=== PATIENT | male | born 1950 | race Caucasian/White ===

== ENCOUNTER 2016-08-07 07:33 | Outpatient (CLI) | payer MEDICARE, OTHER | END 2016-08-07 07:34 | disposition home or self-care (01) | DX: N62 Hypertrophy of breast (principal) ==

== ENCOUNTER 2016-08-10 07:52 | Outpatient (CLI) | payer MEDICARE, OTHER ==
[2016-08-10] MEDS ORDERED: GADOBUTROL 7.5 MMOL/7.5 ML VIAL IVP ONE (16:00)
== END 2016-08-10 07:53 | disposition home or self-care (01) ==
DX: N62 Hypertrophy of breast (principal); E29.1 Testicular hypofunction; Z94.1 Heart transplant status; R93.0 Abnormal findings on diagnostic imaging of skull and head, not elsewhere classified; J98.4 Other disorders of lung
CPT/HCPCS: 70553; 71020; A9585

== ENCOUNTER 2017-04-22 10:28 | Outpatient (CLI) | payer MEDICARE, OTHER ==
[2017-04-22 11:10] LABS: CALCIUM 8.9 mg/dL (8.5-10.3); CREATININE 1.5 mg/dL (0.6-1.2); POTASSIUM 4.1 mmol/L (3.5-5.0)
== END 2017-04-22 10:29 | disposition home or self-care (01) ==
LOC: LAB 10:28
PROVIDERS: ATTEND Internal Medicine
DX: N18.3 Chronic kidney disease, stage 3 (moderate) (principal)
CPT/HCPCS: 36415; 80048

== ENCOUNTER 2017-04-26 13:39 | Outpatient (CLI) | payer MEDICARE, OTHER ==
[2017-04-26] MEDS ORDERED: GADOBUTROL 7.5 MMOL/7.5 ML VIAL ONE (13:41)
[2017-04-26] MEDS ORDERED: GADOBUTROL 7.5 MMOL/7.5 ML VIAL IVP ONE (14:40)
--- NOTE | 2017-04-26 16:13 | MRI Report ---
EXAM: MRI BRAIN WITHOUT AND WITH CONTRAST EXAM DATE: 04/26/2017 02:50 p.m. CLINICAL HISTORY: Pituitary microadenoma follow-up. COMPARISON: 08/10/2016. TECHNIQUE: Multiplanar, multisequence T1-weighted and fluid-sensitive MR sequences of the brain were performed. Sequences optimized for pituitary evaluation. Other: None. Without and with IV Contrast: 7 .5 mL Gadavist. FINDINGS: Pituitary: The mid pituitary gland shows minimally heterogeneous enhancement on the dynamic sequence. The discrete hypoenhancing nodule in the left lateral pituitary seen previously is less evident. No clear evidence for a cyst, mass or other nodule on the standard delayed phase anatomic pituitary imag ing. Normal midline position and appearance of the infundibulum. Maximal height of the pituitary glan d is about 6.5 mm, the superior surface of the pituitary gland is essentially flat. Unremarkable-appe aring adjacent cavernous sinuses. Brain Volume: Stable. Parenchyma/Dura: No restricted diffusion to suggest acute or recent ischemic infarct. No new or acute hemorrhage. Numerous scattered chronic microhemorrhages are again noted. Stable small chronic medial left thalamic lacunar infarct. Negligible cerebral white matter T2 hyperintense signal changes, stab le. No other evidence for intracranial enhancing or space-occupying mass. Contrast opacification of t he major dural venous sinuses is present as expected. Ventricles/Cisterns: No hydrocephalus. Sinuses: No acute paranasal sinus or mastoid disease. 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 Bones: Stable, no developing focal pathologic-appearing marrow signal changes in the skull or clivus. Other: None. IMPRESSION: 1. Less conspicuous subtle nodular hypointensity of the left pituitary gland compared to the prior ex am. Otherwise, stable unremarkable-appearing pituitary gland, no evidence for a growing tumor. 2. Intracranial MRI findings otherwise appear stable as previously reported. [facility] Referring Provider Line: [phone] SITE ID: [id number]
== END 2017-04-26 13:40 | disposition home or self-care (01) ==
LOC: DI 13:39
PROVIDERS: ATTEND Internal Medicine
DX: D35.2 Benign neoplasm of pituitary gland (principal)
CPT/HCPCS: 70553; A9585

== ENCOUNTER 2017-08-12 08:40 | Outpatient (CLI) | payer MEDICARE, OTHER ==
[2017-08-12 09:11] LABS: CALCIUM 9.3 mg/dL (8.5-10.3); CREATININE 1.5 mg/dL (0.6-1.2)
== END 2017-08-12 08:41 | disposition home or self-care (01) ==
LOC: LAB 08:40
PROVIDERS: ATTEND Internal Medicine Advanced Heart Failure and Transplant Cardiology
DX: Z94.1 Heart transplant status (principal)
CPT/HCPCS: 36415; 80048; 80195; 80197; 81599

== ENCOUNTER 2017-08-30 08:47 | Outpatient (CLI) | payer MEDICARE, OTHER ==
[2017-08-30 09:34] LABS: CALCIUM 9.2 mg/dL (8.5-10.3); CREATININE 1.3 mg/dL (0.6-1.2)
== END 2017-08-30 08:48 | disposition home or self-care (01) ==
LOC: LAB 08:47
PROVIDERS: ATTEND Internal Medicine Advanced Heart Failure and Transplant Cardiology
DX: Z94.1 Heart transplant status (principal)
CPT/HCPCS: 36415; 80048

== ENCOUNTER 2017-09-03 09:12 | Outpatient (CLI) | payer MEDICARE, OTHER | END 2017-09-03 09:13 | disposition home or self-care (01) | LOC: LAB 09:12 | PROVIDERS: ATTEND Internal Medicine Advanced Heart Failure and Transplant Cardiology | DX: Z94.1 Heart transplant status (principal) | CPT/HCPCS: 80195; 81599 ==

== ENCOUNTER 2017-09-26 09:17 | Outpatient (CLI) | payer MEDICARE, OTHER ==
[2017-09-26 09:48] LABS: CALCIUM 8.6 mg/dL (8.5-10.3); CREATININE 1.3 mg/dL (0.6-1.2)
== END 2017-09-26 09:18 | disposition home or self-care (01) ==
LOC: LAB 09:17
PROVIDERS: ATTEND Internal Medicine Advanced Heart Failure and Transplant Cardiology
DX: Z94.1 Heart transplant status (principal)
CPT/HCPCS: 36415; 80048; 80195; 81599

== ENCOUNTER 2017-10-21 09:11 | Outpatient (CLI) | payer MEDICARE, OTHER ==
[2017-10-21 09:58] LABS: CALCIUM 8.8 mg/dL (8.5-10.3); CREATININE 1.1 mg/dL (0.6-1.2)
== END 2017-10-21 09:12 | disposition home or self-care (01) ==
LOC: LAB 09:11
PROVIDERS: ATTEND Internal Medicine Advanced Heart Failure and Transplant Cardiology
DX: Z94.1 Heart transplant status (principal)
CPT/HCPCS: 36415; 80048

== ENCOUNTER 2017-10-22 09:05 | Outpatient (CLI) | payer MEDICARE, OTHER | END 2017-10-22 09:06 | disposition home or self-care (01) | LOC: LAB 09:05 | PROVIDERS: ATTEND Internal Medicine Advanced Heart Failure and Transplant Cardiology | DX: Z94.1 Heart transplant status (principal) | CPT/HCPCS: 80195; 81599 ==

== ENCOUNTER 2017-11-25 08:59 | Outpatient (CLI) | payer MEDICARE, OTHER ==
[2017-11-25 09:23] LABS: CREATININE 1.2 mg/dL (0.6-1.2)
== END 2017-11-25 09:00 | disposition home or self-care (01) ==
LOC: LAB 08:59
PROVIDERS: ATTEND Internal Medicine Advanced Heart Failure and Transplant Cardiology
DX: Z94.1 Heart transplant status (principal)
CPT/HCPCS: 36415; 80048; 80195; 81599

== ENCOUNTER 2018-01-14 09:39 | Outpatient (CLI) | payer MEDICARE, OTHER ==
[2018-01-14 10:22] LABS: CALCIUM 8.8 mg/dL (8.5-10.3); CREATININE 1.4 mg/dL (0.6-1.2)
== END 2018-01-14 09:40 | disposition home or self-care (01) ==
LOC: LAB 09:39
PROVIDERS: ATTEND Internal Medicine Advanced Heart Failure and Transplant Cardiology
DX: Z94.1 Heart transplant status (principal)
CPT/HCPCS: 36415; 80048; 81599

== ENCOUNTER 2018-02-25 02:03 | Outpatient (CLI) | payer MEDICARE, OTHER | END 2018-02-25 02:04 | disposition critical access hospital (66) | LOC: EMS 02:03 | PROVIDERS: ATTEND Surgery | DX: I46.9 Cardiac arrest, cause unspecified (principal) | CPT/HCPCS: A0425; A0433 ==

== ENCOUNTER 2018-02-25 02:21 | Emergency (ER) | payer MEDICARE, OTHER ==
--- NOTE | 2018-02-25 02:46 | ED Physician Documentation ---
PD HPI CPR - Stated complaint Stated Complaint: CPR - Chief complaint Chief Complaint: Critical Care - History obtained from History obtained from: Family, EMS - History of Present Illness Timing - onset: Today Timing - onset during: Light activity Preceding symptoms: Dyspnea Contributing factors: CAD Recently seen: Not recently seen Witnessed: Arrest not witnesssed Fall: Fell down Bystander CPR: Bystander CPR EMS findings: Unresponsive, Agonal breathing, Pulseless, Asystole Treatment [employer]ER: CPR, Defibrillated, Intubated, Epi, D50 Advanced directive: Full code - Additional information Additional information: 67 y/o male S/P cardiac transplant Jun 2015 has had some dyspnea the past 2 weeks and had refused to come to the hospital yesterday according to his daughter. This evening the family heard a thud and went to investigate and he was unresponsive on the floor. Bystander CPR was started and medics arrived rapidly. They have performed CPR for 30 minutes prior to arrival at the hospital and the patient arrives intubated after receiving multiple rounds of epi, D50 and narcan. He has been in asystole with agonal respirations. Review of Systems Unable to obtain: Intubated PD PAST MEDICAL HISTORY - Past Medical History Cardiovascular: Congestive heart failure, Arrhythmia Endocrine/Autoimmune: Type 2 diabetes GI: Other HEENT: Chronic hearing loss - Past Surgical History Past Surgical History: Yes HEENT: Tonsil/Adenoidectomy - Present Medications Home Medications: Ambulatory Orders Medication Instructions Recorded Confirmed Aspirin [Adult Low Dose Aspirin EC] 81 mg PO DAILY 12/29/14 11/21/15 Bupropion HCl [Buproban] 150 mg PO DAILY 12/29/14 11/21/15 Cholecalciferol (Vitamin D3) 2,000 unit PO DAILY 12/29/14 11/21/15 [Vitamin D] Enoxaparin [Lovenox] 100 mg SUBQ ONCE PRN 12/29/14 11/21/15 Losartan [Cozaar] 25 mg PO BID 12/29/14 11/21/15 Methylphenidate HCl 15 mg PO BID 12/29/14 11/21/15 Paroxetine HCl [Paxil] 40 mg PO DAILY 12/29/14 11/21/15 Potassium Chloride [Micro-K] 40 meq PO TID 12/29/14 11/21/15 Pravastatin Sodium 20 mg PO DAILY 12/29/14 11/21/15 Tamsulosin [Flomax] 0.4 mg PO DAILY 12/29/14 11/21/15 Insulin Lispro [Humalog Kwikpen 7 units SUBQ TID 11/21/15 11/21/15 U-100] Metformin HCl 1,000 mg PO BID 11/21/15 11/21/15 Pantoprazole [Protonix] 1 tab PO DAILY 11/21/15 11/21/15 Sulfamethoxazole/Trimethoprim 1 tab PO QPM 11/21/15 11/21/15 [Bactrim 400-80 mg Tablet] - Allergies Allergies/Adverse Reactions: Allergies Allergy/AdvReac Type Severity Reaction Status Date / Time metolazone [Metolazone] Allergy Intermediate Unknown Verified 11/21/15 20:18 enalapril [Enalapril] Allergy Unknown Unknown Verified 11/21/15 20:18 spironolactone Allergy Unknown Unknown Verified 11/21/15 20:18 iron ferrous juniper Allergy Mild Rash Uncoded 11/21/15 20:18 tape Allergy Mild Rash Uncoded 11/21/15 20:18 - Social History Does the pt smoke?: No Smoking Status: Never smoker Does the pt drink ETOH?: No Does the pt have substance abuse?: No - Immunizations Immunizations are current?: Yes PD ED PE NORMAL - Vitals Vital signs reviewed: Yes (Not vital ) - General General: Well developed/nourished, Other (intubated and being bagged with frothy red sputum in the tube. ) - HEENT HEENT: Atraumatic, Other (pupils are fixed) - Cardiac Cardiac: Other (There is no cardiac activity on bedside ultrasound ) - Respiratory Respiratory: Other (symetric rise and equal breath sounds with bagging. ) - Abdomen Abdomen: Non distended - Derm Derm: Normal color, Warm and dry, Other (There are various bruises all mild ) - Extremities Extremities: No deformity, Other (trace edema ) Results - Vitals Vitals: Oxygen O2 Source Room air Procedures - Bedside sono Bedside sono by EMP: With use of bedside ultrasound the heart is imaged and there is no cardiac activity there are occasional agonal complexes on the monitor which do not transmitted into contraction of any part of the heart. PD MEDICAL DECISION MAKING - ED course Complexity details: reviewed old records, re-evaluated patient, considered differential, d/w family ED course: 67-year-old male at home and was not able to be resuscitated by paramedics in route to the hospital. On arrival to the emergency department patient is in asystole with occasional agonal electrical complexes which do not cause cardiac contraction. He does have some agonal respirations. He has been in asystole for approximately 35 minutes and shortly after arrival to the emergency department efforts at resuscitation are discontinued. He did appear to have an adequate airway and he did appear to have adequate CPR done with massaged femoral pulse. The family was quite distraught about his passing as he is fought hard after having [place] and placement of a LVAD and subsequent heart transplant. - Sepsis Event Vital Signs: Oxygen O2 Source Room air Departure - Departure Disposition: 20 Discharge Date/Time: 02/25/18 02:45
== END 2018-02-25 02:45 | disposition expired ==
LOC: EDUNIT# → ED 02:21
DX: I46.9 Cardiac arrest, cause unspecified (principal); I25.2 Old myocardial infarction; E11.8 Type 2 diabetes mellitus with unspecified complications; Z79.4 Long term (current) use of insulin; Z94.1 Heart transplant status; Z79.82 Long term (current) use of aspirin
CPT/HCPCS: 99284